=== PATIENT | female | born 1960 | race Two or more races ===

== ENCOUNTER → 2017-05-18 | Emergency (ER) | payer OTHER ==
[~2017-05-18] VITALS: Ht 165.1 cm; Wt 72.6 kg
[~2017-05-18] MED LIST: DIOVAN HCT 1601 EAC1; KEFLEX500 MG PO; MEDROLPACK PO; NIZORAL SHAMPO120 ML TOP; TRIAMCINOLONE A15 G3 TOP
== END | disposition home or self-care (01) ==
LOC: ER 01:08
DX: L03.811 Cellulitis of head [any part, except face] (principal); L20.89 Other atopic dermatitis